=== PATIENT | male | born 1955 | race Caucasian/White ===

== ENCOUNTER 2020-11-28 11:06 | Inpatient (IN) | payer SELFPAY ==
[2020-11-28 14:12] LABS: Absolute Lymphocytes (CBC) 2.2 K/uL (0.7-4.9); Basophils % 1.5 % (0-1.3); Lymphocytes % 16.9 % (15.3-44.8); MPV 7.6 fL (7.6-11.3)
[2020-11-28 14:19] LABS: Hematocrit 18.3 % (39.6-49.0)
--- NOTE | 2020-11-28 14:33 | RAD REPORT ---
EXAM DESCRIPTION: CT - Head Brain Wo Cont - 11/28/2020 2:07 pm CLINICAL HISTORY: Head swelling and pain COMPARISON: None TECHNIQUE: Computed axial tomography of the head was obtained. IV contrast was not requested. All CT scans are performed using dose optimization technique as appropriate and may include automated exposure control or mA/KV adjustment according to patient size. FINDINGS: An intracranial bleed is not seen . The ventricles are normal in caliber. No extra-axial fluid collection is noted. Soft tissue with ulceration is present within the right subtemporal region extending into external au ditory canal. Soft tissue is present within the right mastoids with bony destruction suspected. Soft left subtemporal region. 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
--- NOTE | 2020-11-28 14:34 | RAD REPORT ---
EXAM DESCRIPTION: CT - Soft Tissue Neck Wo Contr - 11/28/2020 2:07 pm CLINICAL HISTORY: Neck pain/dysphasia/neck mass COMPARISON: October 2016 TECHNIQUE: Computed axial tomography of the neck was obtained. IV contrast was not requested. Coron al and sagittal reconstruction was performed. All CT scans are performed using dose optimization technique as appropriate and may include automated exposure control or mA/KV adjustment according to patient size. FINDINGS: The pharynx, tongue base, larynx and subglottic trachea appear unremarkable The parotid, submandibular and thyroid glands appear unremarkable. Soft tissue with ulceration is present within the right subtemporal region extending into external au ditory canal. Soft tissue is present within the right mastoids with bony destruction suspected. Soft left subtemporal region. The left external auditory canal and mastoids are clear IMPRESSION: Right malignant external otitis
[2020-11-28 14:40] LABS: ALT/SGPT 12 U/L (12-78); AST/SGOT 7 U/L (15-37); Alkaline Phosphatase 57 U/L (45-117); BUN Blood Urea Nitrogen 37 mg/dL (7-18); Bicarbonate 21 mmol/L (21-32); Bilirubin Direct < 0.1 mg/dL (0-0.2); Bilirubin Total 0.3 mg/dL (0.2-1.0); Glucose Level 104 mg/dL (74-106); Magnesium 2.4 mg/dL (1.8-2.4); Potassium 4.6 mmol/L (3.5-5.1); Protein, Total 7.7 g/dL (6.4-8.2); Sodium Level 138 mmol/L (136-145)
--- NOTE | 2020-11-28 14:40 | RAD REPORT ---
EXAM DESCRIPTION: RAD - Chest Single View - 11/28/2020 2:24 pm CLINICAL HISTORY: chronic wounds COMPARISON: None TECHNIQUE: AP portable chest image was obtained 11/28/2020 2:24 pm . FINDINGS: No acute lung parenchymal process seen. Heart and vasculature are normal. No measurable pl eural effusion and no pneumothorax. No acute bone process seen. Patient has a very severe scoliotic d eformity of the spine. An acute component is not seen. Bone detail is limited. No acute aortic findin gs suspected. IMPRESSION: No acute cardiopulmonary process.
[2020-11-28 15:07] LABS: Blood Morphology Comment NOTED (NOT SEEN); Hypochromasia 1+; Platelet Estimate INCR; White Blood Cell Scan OK (OK)
[2020-11-28] MEDS ORDERED: CEFEPIME/SWI 1gm 10 ML ONE (17:58)
[2020-11-28] MEDS ORDERED: VANCOMYCIN/NS 1 gm 1 GM/250 ML BAG IVPB ONE (18:00)
--- NOTE | 2020-11-28 18:50 | EDPHYS ---
Physician Documentation [facility] Name: Jason Murray Age: 64 yrs Sex: Male : 1955 Arrival Date: 11/28/2020 Time: 11:15 Bed 30 Private MD: ED Physician Jose D Whelan HPI: 11/28 13:10 This 64 yrs old Male presents to ER via Wheelchair with complaints of ear cp bugs, Leg Pain, Wound Infection. 13:10 The patient or guardian reports pain, concern for infected chronic wounds ears. Sister cp of patient reports noticing "maggots" in open wounds of ears. 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 13:10 Associated signs and symptoms: Pertinent negatives: neck pain, fever, shortness of cp breath. Historical: - Allergies: 11:49 PENICILLINS; jl7 - Home Meds: 11:49 None [Active]; jl7 - PMHx: 11:49 untreated skin cancer; scoliosis; jl7 - PSHx: 11:49 Tonsillectomy; jl7 - Immunization history:: Adult Immunizations not up to date, Client reports having NOT received the Covid vaccine. - Social history:: Smoking status: . ROS: 13:15 Constitutional: Negative for body aches, chills, fever, poor PO intake. cp 13:15 Eyes: Negative for injury, pain, redness, and discharge. cp 13:15 Cardiovascular: Negative for chest pain, palpitations. 13:15 Respiratory: Negative for cough, shortness of breath, wheezing. 13:15 Abdomen/GI: Negative for abdominal pain, nausea, vomiting, and diarrhea. 13:15 Skin: Positive for of the left ear and right ear, chronic open wounds. 13:15 Neuro: Positive for weakness, Negative for altered mental status, headache. 13:15 All other systems are negative. Exam: 13:20 Constitutional: The patient appears in no acute distress, alert, awake, cp non-diaphoretic, non-toxic, well developed, frail. 13:20 Head/face: Noted is large open wound noted to area of right ear with purulent drainage, cp observed infestation with maggots. Right submandibular area appears with golf ball size wound through dermal layer of skin. 13:20 Eyes: Periorbital structures: appear normal, Pupils: equal, round, and reactive to light and accomodation, Extraocular movements: intact throughout, Conjunctiva: normal, no exudate, no injection, Sclera: no appreciated abnormality, Lids and lashes: appear normal, bilaterally. 13:20 ENT: Nose: is normal, Mouth: Lips: moist, Oral mucosa: moist, Posterior pharynx: Airway: no evidence of obstruction, patent. 13:20 Neck: ROM/movement: is normal, is supple, without pain, no range of motions limitations. 13:20 Chest/axilla: Inspection: normal, Palpation: is normal, no crepitus, no tenderness. 13:20 Cardiovascular: Rate: normal, Rhythm: regular, Edema: is not appreciated, JVD: is not appreciated. 13:20 Respiratory: the patient does not display signs of respiratory distress, Respirations: normal, no use of accessory muscles, no retractions, labored breathing, is not present, Breath sounds: are clear throughout, no decreased breath sounds, no stridor, no wheezing. 13:20 Abdomen/GI: Inspection: abdomen appears normal, Bowel sounds: active, all quadrants, Palpation: abdomen is soft and non-tender, in all quadrants. 13:20 Back: scoliosis that is marked. 13:20 Neuro: Orientation: to person, place \\T\\ time. Mentation: is normal. 14:38 ECG was reviewed by the Attending Physician. Vital Signs: 11:46 BP 108 / 64; Pulse 79; Resp 17; Temp 98.9; Pulse Ox 100% ; Weight 68.04 kg; Height 5 jl7 ft. 6 in. (167.64 cm); Pain 3/10; 17:45 BP 128 / 74; Pulse 61; Resp 16; Pulse Ox 98% on R/A; iw 11:46 Body Mass Index 24.21 (68.04 kg, 167.64 cm) jl7 Latosha Coma Score: 13:10 Eye Response: spontaneous(4). Verbal Response: oriented(5). Motor Response: obeys cp commands(6). Total: 15. MDM: 13:03 Patient medically screened. cp 17:00 Physician consultation: Monica Albarado MD in the emergency department to see patient cp at 16:10, cleans and debrides wounds and will consult on patient. 18:45 Data reviewed: vital signs, nurses notes, lab test result(s), EKG, radiologic studies, cp CT scan, plain films. 18:45 Test interpretation: by ED physician or midlevel provider: ECG, plain radiologic cp studies. Counseling: I had a detailed discussion with the patient and/or guardian regarding: the historical points, exam findings, and any diagnostic results supporting the discharge/admit diagnosis, lab results, radiology results, the need for further work-up and treatment in the hospital. Physician consultation: Ronnie HURTADO was contacted at 18:45, regarding admission, to the telemetry unit. patient's condition. 11/28 13:22 Order name: Basic Metabolic Panel; Complete Time: 14:52 cp 11/28 14:53 Interpretation: Normal except: CL 109; BUN 37; CRE 2.75; GFR 23; CA 8.2. cp 11/28 13:22 Order name: CBC with Diff; Complete Time: 15:15 cp 11/28 14:24 Interpretation: Normal except: WBC 13.20; RBC 2.90; HGB 5.9; HCT 18.3; MCV 63.3; MCH cp 20.2; PLT 445; RDW 18.0; TACOS% 73.9; BASO% 1.5; NEUT A 9.7. 11/28 13:22 Order name: LFT's; Complete Time: 14:52 cp 11/28 14:53 Interpretation: Normal except: AST 7; ALB 3.0; GLOB 4.7; A/G 0.6. cp 11/28 13:22 Order name: Magnesium; Complete Time: 14:52 cp 11/28 13:22 Order name: PT-INR; Complete Time: 22:59 cp 11/28 13:22 Order name: Ptt, Activated; Complete Time: 22:59 cp 11/28 13:46 Order name: Blood Culture Adult (2) cp 11/28 13:46 Order name: Lactate; Complete Time: 16:50 cp 11/28 13:46 Order name: Procalcitonin; Complete Time: 16:50 cp 11/28 16:50 Interpretation: Abnormal: Procalcitonin 0.07. cp 11/28 14:20 Order name: CREATININE WHOLE BLOOD; Complete Time: 14:23 EDMS 11/28 14:21 Order name: Type And Screen cp 11/28 15:07 Order name: CBC Smear Scan; Complete Time: 15:15 EDPR 11/28 16:53 Order name: Packed RBC Leukored EDPR 11/28 13:22 Order name: EKG; Complete Time: 13:22 11/28 13:48 Order name: XRAY Chest (1 view); Complete Time: 14:52 11/28 14:03 Order name: Head Brain Wo Cont; Complete Time: 14:39 EDMS 11/28 14:05 Order name: Soft Tissue Neck Wo Contr; Complete Time: 14:39 EDPR 11/28 19:30 Order name: CONS Physician Consult; Complete Time: 22:59 EDMS 11/28 19:53 Order name: SARS-COV-2 RT PCR; Complete Time: 22:59 EDMS 11/28 20:16 Order name: ABO/RH no charge; Complete Time: 22:59 EDMS 11/28 22:36 Order name: Transferrin Sat/Iron Binding; Complete Time: 22:59 EDMS 11/28 22:36 Order name: Ferritin; Complete Time: 22:59 [facility] 11/28 22:36 Order name: Folic Acid, (Folate); Complete Time: 22:59 EDPR 11/28 22:36 Order name: Vitamin B12 Level; Complete Time: 22:59 EDPR 11/28 13:22 Order name: EKG - Nurse/Tech; Complete Time: 16:06 11/28 13:22 Order name: IV Saline Lock; Complete Time: 16:06 11/28 13:22 Order name: Labs collected and sent; Complete Time: 16:06 11/28 13:22 Order name: O2 Per Protocol; Complete Time: 16:06 11/28 13:22 Order name: O2 Sat Monitoring; Complete Time: 16:06 11/28 14:22 Order name: Labs - recollect needed; Complete Time: 18:18 mt 11/28 15:11 Order name: consult Order-Monica Albarado MD (ENT, OTOLARGNOGOLOGY) 11/28 15:35 Order name: Wound Care: please clean and dress wounds; Complete Time: 17:33 11/28 16:22 Order name: Labs - recollect needed; Complete Time: 18:17 mt 11/28 18:31 Order name: Labs - recollect needed; Complete Time: 19:24 mt EC:38 Rate is 63 beats/min. Rhythm is regular. NH interval is normal. QRS interval is normal. cp QT interval is normal. T waves are Inverted in lead aVR. Interpreted by me. Reviewed by me. Administered Medications: 17:45 Drug: Cefepime 1 grams Route: IVPB; Rate: 200 ml/hr; Infused Over: 30 mins; Site: left iw antecubital; 18:00 Follow up: IV Status: Completed infusion iw 19:24 Drug: vancoMYCIN 1 grams Route: IVPB; Infused Over: 2 hrs; Site: right antecubital; iw 19:45 Follow up: IV Status: Infusion continued iw Disposition: 18:50 Chart complete. cp 11/29 06:39 Co-signature as Attending Physician, Jose D Whelan MD I agree with the assessment and kdr plan of care. Disposition Summary: 11/28/20 18:50 Hospitalization Ordered Hospitalization Status: Inpatient Admission cp Provider: Joshua Peterson cp Location: Telemetry/MedSurg (Inpatient) cp Condition: Stable cp Problem: new cp Symptoms: have improved cp Bed/Room Type: Standard cp Room Assignment: 216(11/28/20 22:48) Diagnosis - Acute kidney failure, unspecified cp - Anemia in other chronic diseases classified elsewhere cp Forms: - Medication Reconciliation Form cp - SBAR form cp Signatures: Dispatcher [employer] EDMS Yasmine Collier RN RN Jose D Whelan MD MD [facility] Tahira Garza RN RN Stalin Phillips PA PA cp Denise Alexander RN RN jl7 Erin Vázquez or Corrections: (The following items were deleted from the chart) 11/28 14:03 13:22 Head Brain W/ Wo Con+CT.RAD.BRZ ordered. EDMS EDMS 14:05 13:22 Soft Tissue Neck W/Contr+CT.RAD.BRZ ordered. EDMS EDMS 18:49 15:27 CORONAVIRUS+MR.LAB.BRZ ordered. EDMS EDMS 22:48 18:50 cp mw
--- NOTE | 2020-11-28 18:50 | ER ---
Nurse's Notes [facility] Name: Jason Murray Age: 64 yrs Sex: Male : 1955 Arrival Date: 11/28/2020 Time: 11:15 Bed 30 Private MD: Diagnosis: Acute kidney failure, unspecified;Anemia in other chronic diseases classified elsewhere Presentation: 11/28 11:46 Chief complaint: Patient states: untreated skin cancer to bilateral ears, fly landed on jl7 right side and now there's bugs. Also reports bilateral leg pain, right leg worse. Coronavirus screen: Client denies travel out of the [place] in the last 14 days. At this time, the client does not indicate any symptoms associated with coronavirus-19. Ebola Screen: No symptoms or risks identified at this time. Initial Sepsis Screen: Does the patient meet any 2 criteria? No. Patient's initial sepsis screen is negative. Does the patient have a suspected source of infection? No. Patient's initial sepsis screen is negative. Risk Assessment: Do you want to hurt yourself or someone else? Patient reports no desire to harm self or others. Onset of symptoms is unknown. 11:46 Method Of Arrival: Wheelchair jl7 11:46 Acuity: BETTY 3 jl7 Triage Assessment: 11:49 General: Appears in no apparent distress. uncomfortable, Behavior is calm, cooperative, jl7 appropriate for age. Pain: Complains of pain in right leg and left leg. Historical: - Allergies: 11:49 PENICILLINS; jl7 - Home Meds: 11:49 None [Active]; jl7 - PMHx: 11:49 untreated skin cancer; scoliosis; jl7 - PSHx: 11:49 Tonsillectomy; jl7 - Immunization history:: Adult Immunizations not up to date, Client reports having NOT received the Covid vaccine. - Social history:: Smoking status: . Screenin:00 Fall Risk None identified. iw 18:08 Abuse screen: Denies threats or abuse. Denies injuries from another. Nutritional iw screening: No deficits noted. Tuberculosis screening: No symptoms or risk factors identified. Assessment: 13:00 General: Appears in no apparent distress. Behavior is calm, cooperative. Pain: iw Complains of pain in right ear and left ear. Neuro: Level of Consciousness is awake, alert, obeys commands, Oriented to person, place, time, situation, Moves all extremities. Cardiovascular: Patient's skin is warm and dry. Respiratory: Respiratory effort is even, unlabored. Derm: large ulceration and destruction of right ear canal, visible live maggots noted inside ear canal, outer ear cartilage is destroyed, weeping, crusting, dried blood noted to right ear area, large ulceration of left lower jaw area with weeping and crusting noted , left ear cartilage is intact, no insects noted. Musculoskeletal: Scoliosis noted. 15:05 Reassessment: Patient appears in no apparent distress at this time. Patient and/or iw family updated on plan of care and expected duration. Pain level reassessed. Patient is alert, oriented x 3, equal unlabored respirations, skin warm/dry/pink. 16:05 Reassessment: Patient appears in no apparent distress at this time. Patient and/or iw family updated on plan of care and expected duration. Pain level reassessed. Patient is alert, oriented x 3, equal unlabored respirations, skin warm/dry/pink. 16:15 Reassessment: Dr. Albarado at bedside to evaluate pt, wound care completed, removed 46 iw live maggots. 17:50 Reassessment: unsuccessful attempt X 2 left EJ by GENESIS Leger. iw Vital Signs: 11:46 BP 108 / 64; Pulse 79; Resp 17; Temp 98.9; Pulse Ox 100% ; Weight 68.04 kg; Height 5 jl7 ft. 6 in. (167.64 cm); Pain 3/10; 17:45 BP 128 / 74; Pulse 61; Resp 16; Pulse Ox 98% on R/A; iw 11:46 Body Mass Index 24.21 (68.04 kg, 167.64 cm) jl7 Latosha Coma Score: 13:10 Eye Response: spontaneous(4). Verbal Response: oriented(5). Motor Response: obeys cp commands(6). Total: 15. ED Course: 11:15 Patient arrived in ED. am2 11:49 Triage completed. jl7 11:49 Arm band placed on right wrist. jl7 13:02 Tahira Garza, RN is Primary Nurse. iw 13:02 Stalin Phillips PA is PHCP. cp 13:02 Jose D Whelan MD is Attending Physician. cp 14:00 Inserted saline lock: 22 gauge in left antecubital area, using aseptic technique. iw 14:07 Head Brain Wo Cont In Process Unspecified. EDMS 14:07 Soft Tissue Neck Wo Contr In Process Unspecified. EDMS 14:24 XRAY Chest (1 view) In Process Unspecified. EDMS 15:59 COVID swab sent to lab. Missed attempt(s): 20 gauge in right forearm. 22 gauge in right mh5 wrist. 16:09 Patient has correct armband on for positive identification. Placed in gown. Bed in low mh5 position. Call light in reach. Side rails up X 1. Adult w/ patient. Warm blanket given. campus monitor on. Pulse ox on. NIBP on. 16:[address] [facility] 16:09 PT-INR [facility] 16:30 Assist provider with foreign body removal of an insect from right ear canal. using alligator clamps, Set up for procedure. Performed by Monica Albarado MD Patient tolerated well. 17:50 Missed attempt(s): 18 gauge in left EJ. iw 18:09 Inserted saline lock: 20 gauge in right antecubital area, using aseptic technique. 18:49 Joshua Peterson is Hospitalizing Provider. cp 11/29 00:15 Patient admitted, IV remains in place. iw Administered Medications: 11/28 17:45 Drug: Cefepime 1 grams Route: IVPB; Rate: 200 ml/hr; Infused Over: 30 mins; Site: left iw antecubital; 18:00 Follow up: IV Status: Completed infusion iw 19:24 Drug: vancoMYCIN 1 grams Route: IVPB; Infused Over: 2 hrs; Site: right antecubital; iw 19:45 Follow up: IV Status: Infusion continued iw Outcome: 18:50 Decision to Hospitalize by Provider. cp 11/29 00:15 Admitted to Med/surg iw Condition: good Discharge instructions given to patient, Instructed on the need for admit. 00:18 Patient left the ED. mw2 Signatures: Dispatcher [employer] Tahira Nelson RN RN iw Stalin Phillips PA PA cp Martinez, Maria 5 Denise Alexander RN RN 7 Aria German am2 Adrianna Gilmore mw2 Corrections: (The following items were deleted from the chart) 11/28 18:49 16:07 CORONAVIRUS+MR.LAB.BRZ drawn and sent. mh5 EDMS
[2020-11-28 19:07] LABS: Protime INR 1.24
--- NOTE | 2020-11-28 20:52 | P.HP ---
Certification for Inpatient Patient admitted to: Inpatient With expected LOS: >2 Midnights Patient will require the following post-hospital care: None Practitioner: I am a practitioner with admitting privileges, knowledge of patient current condition, hospital course, and medical plan of care. Services: Services provided to patient in accordance with Admission requirements found in Title 42 Section 412.3 of the Code of Federal Regulations Patient History Date of Service: 11/28/20 Primary Care Provider: none Reason for admission: bilateral ear wounds, anemia, PAMELA History of Present Illness: Mr. Murray is a 64 yo M with untreated skin cancer, severe scoliosis here today with severe open wounds of both ears extending to the face and with erosion of the right ear. Maggots were found in both ears. Patient said he has been too weak to walk his dog so she has been using the bathroom in the house which attracted the flies and maggots. ENT debrided wound and removed maggots. Reports drainage of wound and occasional diarrhea. Patient denies pain, night sweats, chills, nausea and vomiting. WBC 13.2. H/H 5.9, MCV 63.3. BUN 37, Cr 2.75, GFR 23. Procalcitonin 0.07. CXR revealed severe scoliotic deformity of the spine. CT read as right malignant external otitis and soft tissue left subtemporal region indicating inflammation. Allergies Penicillins Allergy (Verified 11/28/20 19:30) Anaphylaxis Home Medications: NK [No Home Meds] 11/28/20 - Past Medical/Surgical History Diabetic: No -: skin cancer -: scoliosis -: shingles -: seizures in the -: tonsillectomy -: cholecystectomy -: eye surgery -: spinal fusion Psychosocial/ Personal History: lives alone with dog - Family History Mother -: Cancer Father -: Cancer - Social History Smoking Status: Never smoker Alcohol use: No CD- Drugs: No Caffeine use: No Place of Residence: Home Review of Systems 10-point ROS is otherwise unremarkable General: Weakness ENT: Ear Discharge Respiratory: Shortness of Breath, Wheezing Gastrointestinal: Diarrhea Integumentary: Rash, Lesions Neurological: Weakness Physical Examination - Physical Exam General: Alert, In no apparent distress, Oriented x3, Cooperative HEENT: Atraumatic, Mucous membr. moist/pink, Other (surgery on right eye ), Sclerae nonicteric Neck: Supple, 2+ carotid pulse no bruit, No LAD, Without JVD or thyroid abnormality Respiratory: Clear to auscultation bilaterally, Diminished, Expiratory wheezes Cardiovascular: Regular rate/rhythm, Normal S1 S2 Gastrointestinal: Normal bowel sounds, No tenderness Musculoskeletal: No tenderness, Scoliosis (severe) Integumentary: Skin breakdown, Skin lesion, Tenderness/swelling, Erythema, Warmth, Other (complete erosion of right ear, extensive open wound of left ear with drainage ) Neurological: Normal speech, Normal strength at 5/5 x4 extr, Normal tone, Sensation intact, Cranial nerves 3-12 intact, Normal affect Lymphatics: No axilla or inguinal lymphadenopathy - Studies Laboratory Data (last 24 hrs) 11/28/20 18:47: PT 14.3 H, INR 1.24, APTT 25.0 11/28/20 13:50: WBC 13.20 H, Hgb 5.9 L*, Hct 18.3 L*, Plt Count 445 H 11/28/20 13:50: Sodium 138, Potassium 4.6, BUN 37 H, Creatinine 2.75 H, Glucose 104, Magnesium 2.4, Total Bilirubin 0.3, AST 7 L, ALT 12, Alkaline Phosphatase 57 Assessment and Plan - Plan Assessment bilateral open wounds of the ear, erosion of the ear 2/2 untreated skin cancer anemia requiring blood transfusions PAMELA scoliosis, severe Plan bilateral open wounds of the ear, erosion of the ear 2/2 untreated skin cancer - ENT consulted, continue IV antibiotics, blood cultures pending, will need to followup with oncology anemia requiring blood transfusions - transfuse 2 units pRBCs, repeat H/H 2 hours post, continue to monitor, iron panel pending, FOBT negative in the ED PAMELA - continue IVF hydration, nephrology consulted scoliosis, severe - may be contributing to SOB, breathing treatments and O2 PRN patient no longer can care for self at home, social work consulted, PT consulted DVT ppx Discharge Plan: Home Plan to discharge in: 72 Hours - Advance Directives Does patient have a Living Will: No Does patient have a Durable POA for Healthcare: No - Code Status/Comfort Care Code Status Assessed: Yes (full code) Critical Care: No Time Spent Managing Pts Care (In Minutes): 70
[2020-11-28] MEDS ORDERED: ONDANSETRON 4 MG/2 ML VIAL IV PRN (21:25)
[2020-11-28] MEDS ORDERED: ACETAMINOPHEN 500 MG TAB PO PRN (21:25)
[2020-11-28] MEDS: NA CHLORIDE 0.9% 1,000 ML IV SCH (21:25)
[2020-11-28] MEDS ORDERED: NA CHLORIDE 0.9% 100 ML ONE (22:12)
[2020-11-28] MEDS ORDERED: NA CHLORIDE 0.9% 1,000 ML ONE (22:13)
[2020-11-28] MEDS ORDERED: NA CHLORIDE 0.9% 250 ML ONE (22:13)
[2020-11-28] MEDS ORDERED: ALBUTEROL 2.5 MG/3 ML NEB SOL ONE (22:23)
[2020-11-28 22:36] LABS: Ferritin 7.1 ng/mL (26-388); Folic Acid, (Folate) 13.6 ng/mL (3.1-17.5)
[2020-11-28] MEDS: ALBUTEROL 2.5 MG/3 ML NEB SOL NEB SCH (22:46)
[2020-11-29 00:17] VITALS: BMI 20.6
[2020-11-29 00:56] LABS: Urine Appearance CLEAR (Clear); Urine Bilirubin NEGATIVE (Negative); Urine Blood TRACE (Negative); Urine Color YELLOW (Yellow); Urine Glucose NEGATIVE (Negative); Urine Protein TRACE (Negative); Urine Urobilinogen 0.2 mg/dL (0.2-1.0); Urine pH 5.5 (5.0-7.0)
[2020-11-29 00:58] LABS: Urine Microscopic Reflex ORDER UMIC
[2020-11-29 01:15] LABS: Urine Bacteria <20 /HPF (NONE SEEN); Urine RBC <5 /HPF (NONE SEEN); Urine Urothelial Cells <5 /HPF (NONE SEEN)
[2020-11-29] MEDS ORDERED: NA CHLORIDE 0.9% 500 ML ONE (02:39)
[2020-11-29] MEDS: ALBUTEROL 2.5 MG/3 ML NEB SOL NEB SCH ×2 (03:20→19:30)
[2020-11-29 05:55] LABS: Absolute Lymphocytes (CBC) 1.1 K/uL (0.7-4.9); Hematocrit 24.7 % (39.6-49.0); Lymphocytes % 11.2 % (15.3-44.8); MPV 7.6 fL (7.6-11.3); RBC Red Blood Cell Count 3.46 M/uL (4.33-5.43)
[2020-11-29] MEDS ORDERED: CEFEPIME 2 GM VIAL IV SCH (06:00)
[2020-11-29 06:09] LABS: Albumin 2.6 g/dL (3.4-5.0); Bilirubin Total 0.8 mg/dL (0.2-1.0); Magnesium 2.3 mg/dL (1.8-2.4); Phosphorus 3.9 mg/dL (2.5-4.9); Potassium 4.2 mmol/L (3.5-5.1); Protein, Total 6.7 g/dL (6.4-8.2); Thyroid Stimulating Hormone 1.08 uIU/mL (0.360-3.740)
[2020-11-29] MEDS: NA CHLORIDE 0.9% 1,000 ML IV SCH ×3 (07:25→20:55)
--- NOTE | 2020-11-29 07:30 | EKG ---
Test Date: 2020-11-28 Test Time: 14:34:27 [employer]: FOREIGN MEASUREMENT RESULTS: Intervals: Rate: 63 SC: 194 QRSD: 76 QT: 414 QTc: 423 [place]: P: 59 SC: 194 QRS: 37 T: 58 INTERPRETIVE STATEMENTS: Normal sinus rhythm Normal ECG No previous ECG available for comparison Electronically Signed On 11-29-20 07:29:10 CDT by Percy Watkins
[2020-11-29] MEDS ORDERED: PNEUMOCOCCAL VACCINE 0.5 ML IMVAC ONE (08:00)
[2020-11-29 08:31] LABS: Hematocrit 24.5 % (39.6-49.0)
--- NOTE | 2020-11-29 10:03 | P.CNS ---
Date of Consult: 11/29/20 Reason for Consult: PAMELA/ CKD Requesting Physician: gila sahni Primary Care Provider: none Chief Complaint: bilateral ear wounds, anemia, PAMELA History of Present Illness: Mr. Murray is a 64 yo M with untreated skin cancer, severe scoliosis here today with severe open wounds of both ears extending to the face and with erosion of the right ear. Maggots were found in both ears. Patient said he has been too weak to walk his dog so she has been using the bathroom in the house which attracted the flies and maggots. ENT debrided wound and removed maggots. Reports drainage of wound and occasional diarrhea. Patient denies pain, night sweats, chills, nausea and vomiting. WBC 13.2. H/H 5.9, MCV 63.3. BUN 37, Cr 2.75, GFR 23. Procalcitonin 0.07. CXR revealed severe scoliotic deformity of the spine. CT read as right malignant external otitis and soft tissue left subtemporal region indicating inflammation. Reports taking a lot of NSAIDs in the past but quit six months ago due to a lack of effect. Reports symptoms of BPH. Allergies Penicillins Allergy (Verified 11/28/20 19:30) Anaphylaxis Home medications list reviewed: Yes Home Medications: NK [No Home Meds] 11/28/20 - Past Medical/Surgical History Diabetic: No -: skin cancer -: scoliosis -: shingles -: seizures in the -: tonsillectomy -: cholecystectomy -: eye surgery -: spinal fusion Psychosocial/ Personal History: lives alone with dog - Family History Mother Medical History: Cancer Father Medical History: Cancer - Social History Alcohol use: No CD- Drugs: No Caffeine use: Yes Place of Residence: Home Review of Systems 10-point ROS is otherwise unremarkable General: Weakness, Malaise ENT: Ear Pain, Ear Discharge Genitourinary: Frequency, Urgency Integumentary: Lesions Neurological: Weakness Physical Examination Temp Pulse Resp BP Pulse Ox 98.4 F 68 18 121/77 98 11/29/20 08:00 11/29/20 08:00 11/29/20 08:00 11/29/20 08:00 11/29/20 08:00 General: Oriented x3, Cooperative HEENT: EOMI Neck: Supple Respiratory: Normal air movement Cardiovascular: No edema, Regular rate/rhythm Gastrointestinal: Soft and benign, Non-distended Musculoskeletal: No clubbing, No contractures Integumentary: No rashes, No cyanosis, Skin breakdown, Skin lesion Neurological: Normal speech Laboratory Data (last 24 hrs) 11/28/20 18:47: PT 14.3 H, INR 1.24, APTT 25.0 11/28/20 13:50: WBC 13.20 H, Hgb 5.9 L*, Hct 18.3 L*, Plt Count 445 H 11/28/20 13:50: Sodium 138, Potassium 4.6, BUN 37 H, Creatinine 2.75 H, Glucose 104, Magnesium 2.4, Total Bilirubin 0.3, AST 7 L, ALT 12, Alkaline Phosphatase 57 Imagings Data: EXAM DESCRIPTION: RAD - Chest Single View - 11/28/2020 2:24 pm CLINICAL HISTORY: chronic wounds COMPARISON: None TECHNIQUE: AP portable chest image was obtained 11/28/2020 2:24 pm . FINDINGS: No acute lung parenchymal process seen. Heart and vasculature are normal. No measurable pleural effusion and no pneumothorax. No acute bone process seen. Patient has a very severe scoliotic deformity of the spine. An acute component is not seen. Bone detail is limited. No acute aortic findings suspected. IMPRESSION: No acute cardiopulmonary process. EXAM DESCRIPTION: CT - Soft Tissue Neck Wo Contr - 11/28/2020 2:07 pm CLINICAL HISTORY: Neck pain/dysphasia/neck mass COMPARISON: October 2016 TECHNIQUE: Computed axial tomography of the neck was obtained. IV contrast was not requested. Coronal and sagittal reconstruction was performed. All CT scans are performed using dose optimization technique as appropriate and may include automated exposure control or mA/KV adjustment according to patient size. FINDINGS: The pharynx, tongue base, larynx and subglottic trachea appear unremarkable The parotid, submandibular and thyroid glands appear unremarkable. Soft tissue with ulceration is present within the right subtemporal region extending into external auditory canal. Soft tissue is present within the right mastoids with bony destruction suspected. Soft left subtemporal region. The left external auditory canal and mastoids are clear IMPRESSION: Right malignant external otitis EXAM DESCRIPTION: CT - Head Brain Wo Cont - 11/28/2020 2:07 p CLINICAL HISTORY: Head swelling and pain COMPARISON: None TECHNIQUE: Computed axial tomography of the head was obtained. IV contrast was not requested. All CT scans are performed using dose optimization technique as appropriate and may include automated exposure control or mA/KV adjustment according to patient size. FINDINGS: An intracranial bleed is not seen . The ventricles are normal in caliber. No extra-axial fluid collection is noted. Soft tissue with ulceration is present within the right subtemporal region extending into external auditory canal. Soft tissue is present within the right mastoids with bony destruction suspected. Soft left subtemporal region. The left external auditory canal and mastoids are clear IMPRESSION: These findings probably indicate right malignant external otitis Soft tissue left subtemporal region indicating inflammation Conclusions/Impression: PAMELA likely due to hypovolemia CKD IV -No NSAIDs -Continue IVF Hypocalcemia -Start Vitamin D3 Moderate malnutriton -Encourage nutrition Anemia in chronic illness Iron deficiency -sp PRBCs -Agree with IV iron BPH with LUTS -Start Flomax qhs Thank you kindly for the consultation Case reviewed with Dr. Sahni
[2020-11-29] MEDS: CEFEPIME/SWI 2gm 2 GM/20 ML SYR IV SCH (10:32)
[2020-11-29] MEDS: SOD FERRIC GLUC COMPLX/SUCROSE 125 MG in NA CHLORIDE 0.9% 100 ML IV SCH (10:36)
--- NOTE | 2020-11-29 10:39 | PN ---
Date of Progress Note: 11/29/2020 Interim History: The patient was admitted through the emergency room last night due to acute kidney failure and severe anemia requiring transfusion. I evaluated the patient in the ER in regard to his bilateral neck and facial tumors. The patient did receive transfusion without any discernible reaction and is continuing medical evaluation for his medical conditions. The patient is tolerating oral diet and does not have any significant complaints in regard to his head wounds. He denies any sensation of crawling or movement within the wounds. Physical Examination: The patient is alert and oriented. He is in no acute distress. His dressing placed yesterday in the emergency room fell off. The right wound is relatively stable. There is a small amount of purulent debris coming from the ear canal, which is likely due to superficial infection of the tumor. There is no active bleeding. There is no visible movement or residual maggots noted within the ear canal or crevices of the tumor at this time. The left wound is likewise stable. There is no active bleeding, though the tumor is friable to touch. There is some blood on the patient's gown and pillow likely from excoriation of the tumor during sleep. Assessment: Stable bilateral advanced skin malignancy, otherwise unchanged. Plan: The patient will require extensive oncologic resection, reconstruction, and possible postoperative radiation. All of this can be arranged on an outpatient basis. Due to the advanced nature of his disease, expertise of an manager language, head and neck cancer subspecialist, plastics/reconstructive specialist as well as others will be required for the treatment of his disease. These are best treated in an academic setting such as [facility], the [facility], or [facility]. I am uncertain at this time regarding the availability of an advanced head and neck specialist at [facility], though this may be the an additional option. I previously discussed with the patient and his sister regarding the importance of obtaining medical insurance in order to have better access to require care. I spoke with the nursing staff regarding wound cleaning and dressing. I recommend gentle cleaning of the tumor areas with a moist gauze in order to lightly debride from the purulent drainage. The wounds can then be covered with a large piece of Xeroform and a head wrap or head dressing in order to secure the Xeroform to the wounds. This dressing should be changed on a daily or twice daily basis. At this point in time, I disagree with the radiologist's diagnosis of malignant otitis externa in regard to an infectious cause. Based on his clinical findings, the bone erosion of the right external auditory canal is likely due to his malignancy and does not warrant long-term IV antibiotics. Please feel free to contact me regarding any further questions or concerns about his case. SEVERIANO/ZAKIYA Voice ID: [id number] Report ID: [id number] JUANY
--- NOTE | 2020-11-29 11:33 | CON ---
Date of Consultation: 11/28/2020 Reason For Consultation: Large wounds of the bilateral head with possible maggot infestation. History Of Present Illness: Mr. Murray presented to the emergency room with complaints of leg pain and bugs in his ear. He was noted to have large exophytic tumors encompassing the right ear and left side of the face. He underwent CT imaging with results to be discussed below. Based on the findings, ENT consultation was requested. The patient states that he has had these skin lesions for many years and had neglected them due to a general distrust of medical personnel. The patient states that in the s, he was seen by a physician with some health concerns and was accused of seeking medical care unnecessarily. Then, subsequently he had 2 major seizures. As a result, he has avoided interactions with the medical community for a significant period of time. The patient's accessed care is also limited by his financial status and lack of medical insurance. In regard to his current wounds, the patient has had some pain and bleeding from the tumors of the right ear and left side of the face. Due to progressive leg pain and difficulty in ambulating, he was unable to take his pet dog out for a walk and the dog had begun defecating in the house resulting in infestation of flies. As a consequence, the patient noted a sensation of crawling within the wounds of his face and was concerned about maggot infestation of the wounds prompting his desire to seek medical care. Past Medical History: Severe scoliosis, history of seizure. Past Surgical History: Tonsillectomy, cholecystectomy, eye surgery, spinal fusion. Review of Systems: Reviewed from the ER documentation and is unchanged. Allergies: PENICILLIN. Home Medications: None. Social History: The patient lives alone with his dog, but has a supportive family. His sister lives in [place] and she as well as other family members have been adamantly encouraging the patient to seek care, which he was unable to do until now. Physical Examination: The patient is awake, alert. His right eye is somewhat ptotic. His right cornea appears abnormal. His most notable head and neck finding involves 2 large exophytic and ulcerated wounds. The right side is matted and caked with dark brown debris of uncertain quality or contents. The debris is removed using scissors to cut its entanglement with the patient's hair. This reveals a large exophytic tumor encompassing all of the right external ear. There are multiple crevices, which appear to be infested with maggots. The remaining ear canal is filled with maggots. The cartilage of the right outer ear appears completely gone. I do not see any exposed bone of the external ear at this time. The wound is carefully debrided of all visible maggots. A total of 45 are removed from the ear canal and crevices of the wound. The ear canal is irrigated with saline and re-examined, but there are no further visible maggots. The left wound is a large exophytic cancerous-appearing tumor, which extends from below the jaw line encompassing the entire lateral cheek including the tragus, antitragus, and earlobe. The wound is very crusted, but there are no visible maggots. The crusting is carefully removed in order to evaluate the tumor better. The ear canal on this side appears minimally involved. In regard to the patient's psychiatric exam, his thought process is fluent. He denies any hallucinations or history of mental illness. He acknowledges the severity of his condition and is willing and now motivated to get appropriate care for his condition. Imaging: The patient's chest x-ray demonstrates severe scoliosis with possible cardiomegaly, but no acute pulmonary processes. On review of the patient's imaging, he has soft tissue enhancement around the right ear and left face consistent with his physical exam. There is bone erosion of the right posterior canal wall with mastoid effusion, which is likely malignant rather than infectious in nature based on his history and clinical findings. In addition, near the tail of the right parotid, there is a 14 mm lymph node within necrotic center, which is concerning for metastatic disease. In addition, he has a significant right septal deviation with right septal spur and the left sukumar bullosa with no other noted mucosal sinus inflammation. Assessment: Bilateral advanced cutaneous malignancy by history and physical exam. Based on clinical and radiographic findings, the patient will require treatment by a coordinated team including the Head and Neck Surgical Oncology subspecialist, likely an senior technical analyst for a lateral temporal bone resection, a plastics-reconstructive specialist due to the anticipated size of the soft tissue defects (ALT free flap likely). He will also likely require bilateral parotidectomy and bilateral neck dissection based on the size of the tumors and need for martin analysis with removal of clinically suspicious right lymph node. I spent an extensive period of time with the patient and the sister explaining his current findings and the need for major surgery including likely postoperative radiation. We discussed that this level of care would require treatment at a tertiary care center such as [facility], the [facility] [place], or [facility] in [place]. Due to his current self- pay status, he also will require some assistance and attention to obtain medical insurance in order to have adequate access to a higher level of care. The patient's sister expresses understanding and is supportive in assisting him in regard to insurance issues. She is also willing to host the patient in her home on a temporary basis while he engages in his necessary medical care in the [place] area. She is also encouraging him to consider assisted living or other assisted care situation due to his health status, which has limited his ability to provide adequate safe living environment for him. All of this advanced cancer care would generally be arranged and performed initially on an outpatient basis. Due to the patient's other underlying medical issues including kidney dysfunction and severe anemia, he will be admitted to the hospitalist service. I am available and happy to answer any questions and assist in re-evaluation and dressing of the wounds, but I am happy to answer any further questions arise. HILLARY Voice ID: [id number] Report ID: [id number] JUANY
--- NOTE | 2020-11-29 15:31 | P.PN ---
Subjective Date of Service: 11/29/20 Primary Care Provider: none Chief Complaint: bilateral ear wounds, anemia, PAMELA Patient with large exophytic lesion on the left cheek, large lesion on the right year with complete destruction of the ear lobe. Hemoglobin low. Status post blood transfusion. Renal function is improving. Patient has no new complain. No fever. Physical Examination - Vital Signs Temperature: 99.5 F Blood Pressure: 119/59 Pulse: 67 Respirations: 18 Pulse Ox (%): 100 - Physical Exam General: Alert, In no apparent distress HEENT: Other (Complete destruction of the right ear lobe by malignant skin lesion) Neck: JVD not distended Respiratory: Clear to auscultation bilaterally, Normal air movement Cardiovascular: No edema, Regular rate/rhythm, Normal S1 S2 Gastrointestinal: Soft and benign, Non-distended, No tenderness Musculoskeletal: No swelling Neurological: Normal strength at 5/5 x4 extr - Studies Laboratory Data (last 24 hrs) 11/28/20 18:47: PT 14.3 H, INR 1.24, APTT 25.0 Assessment And Plan - Current Problems (Diagnosis) (1) Chronic blood loss anemia Current Visit: Yes Status: Acute (2) Acute renal failure Current Visit: Yes Status: Acute (3) Poor social situation Current Visit: Yes Status: Acute (4) Skin cancer Current Visit: Yes Status: Acute - Plan Status post 2 units PRBC transfusion. Posttransfusion hemoglobin is up to 7. Continue IV hydration for acute renal failure. Nephrology input appreciated. Sister is willing to have the patient live with her. Pain management as needed. Follow cultures.
[2020-11-29] MEDS: TAMSULOSIN 0.4 MG SR CAP PO SCH (21:30)
[2020-11-30] MEDS: ALBUTEROL 2.5 MG/3 ML NEB SOL NEB SCH ×4 (02:00→20:00)
[2020-11-30] MEDS: NA CHLORIDE 0.9% 1,000 ML IV SCH ×2 (03:25→06:18)
[2020-11-30 06:12] LABS: Absolute Lymphocytes (CBC) 1.6 K/uL (0.7-4.9); Hematocrit 21.6 % (39.6-49.0); Lymphocytes % 18.1 % (15.3-44.8); MPV 7.2 fL (7.6-11.3); RBC Red Blood Cell Count 3.07 M/uL (4.33-5.43)
[2020-11-30 06:13] LABS: Potassium 4.2 mmol/L (3.5-5.1)
[2020-11-30] MEDS ORDERED: PNEUMOCOCCAL VACCINE 0.5 ML IMVAC ONE (09:00)
[2020-11-30] MEDS: CEFEPIME/SWI 2gm 2 GM/20 ML SYR IV SCH (10:31)
[2020-11-30] MEDS: SOD FERRIC GLUC COMPLX/SUCROSE 125 MG in NA CHLORIDE 0.9% 100 ML IV SCH (10:31)
[2020-11-30] MEDS: VITAMIN D 5,000 UNIT CAP PO SCH (10:32)
[2020-11-30] MEDS: NACHLORIDE 0.45% 1,000 ML IV SCH ×2 (10:32→18:00)
--- NOTE | 2020-11-30 13:49 | P.PN ---
Subjective Date of Service: 11/30/20 Primary Care Provider: none Chief Complaint: bilateral ear wounds, anemia, PAMELA Hemoglobin dropped again. Patient denies any bloody stool or dark stool. Status post 2 units blood transfusion. Serum creatinine slightly up today. Patient has no new complain. No fever. Physical Examination - Vital Signs Temperature: 99.6 F Blood Pressure: 113/56 Pulse: 72 Respirations: 15 Pulse Ox (%): 99 - Physical Exam General: Alert, In no apparent distress HEENT: Other (Bilateral ear) Respiratory: Clear to auscultation bilaterally, Normal air movement Cardiovascular: Regular rate/rhythm, Normal S1 S2 Gastrointestinal: Soft and benign, Non-distended Musculoskeletal: No swelling Neurological: Normal strength at 5/5 x4 extr Assessment And Plan - Current Problems (Diagnosis) (1) Chronic blood loss anemia Current Visit: Yes Status: Acute (2) Acute renal failure Current Visit: Yes Status: Acute (3) Poor social situation Current Visit: Yes Status: Acute (4) Skin cancer Current Visit: Yes Status: Acute - Plan Status post 2 units PRBC transfusion. Posttransfusion hemoglobin down to 6.8 Transfuse 1 more unit PRBC Continue IV hydration for acute renal failure. Nephrology is following Pain management as needed. Local wound care. Blood cultures negative. Urine culture shows mixed growth. Continue empiric antibiotics.
[2020-11-30] MEDS ORDERED: Levofloxacin 750mg IV 750 MG/150 ML BAG IV ONE (14:35)
[2020-11-30] MEDS ORDERED: NA CHLORIDE 0.9% 250 ML ONE (16:45)
--- NOTE | 2020-11-30 18:19 | P.PN ---
Date of Service: 11/30/20 Vital Signs Temp Pulse Resp BP Pulse Ox 98.7 F 71 16 142/68 H 100 11/30/20 16:00 11/30/20 16:00 11/30/20 16:00 11/30/20 16:00 11/30/20 16:00 Medications Acetaminophen (Acetaminophen 500 Mg Tab) 500 mg PO Q4HP PRN PRN Reason: Pain scale 2-4 (Mild) Albuterol Sulfate (Albuterol 2.5 Mg/3 Ml Neb Annemarie) 2.5 mg NEB [id number] [facility] Last Admin: 11/30/20 14:02 Dose: 2.5 mg Documented by: Cholecalciferol (Vitamin D 5,000 Unit Cap) 5,000 unit PO DAILY [facility] Last Admin: 11/30/20 10:32 Dose: 5,000 unit Documented by: Doxycycline Monohydrate (Doxycycline 100 Mg Cap) 100 mg PO BID [facility]; Protocol Ferric Sodium Gluconate Complex 125 mg/ Sodium Chloride 110 mls @ 100 mls/hr IV DAILY [facility] Stop: 12/06/20 10:05 Last Admin: 11/30/20 10:31 Dose: 110 mls Documented by: Sodium Chloride (Sodium Chloride 0.45%) 1,000 mls @ 100 mls/hr IV .Q10H [facility] Last Admin: 11/30/20 10:32 Dose: 1,000 mls Documented by: Levofloxacin/Dextrose (Levaquin 500 Mg/100 Ml Ivpb) 500 mg in 100 mls @ 100 mls/hr IV Q48H [facility] Ondansetron HCl (Ondansetron 4 Mg/2 Ml Vial) 4 mg IV Q6HP PRN PRN Reason: NAUSEA / VOMITING Sodium Chloride (Flush Normal Saline 10 Ml) 10 ml IV BID [facility] Last Admin: 11/30/20 09:00 Dose: Not Given Documented by: Tamsulosin HCl (Tamsulosin 0.4 Mg Sr Cap) 0.4 mg PO BEDTIME [facility] Last Admin: 11/29/20 21:30 Dose: 0.4 mg Documented by: Lab Results (last 24 hrs) 11/28/20 18:47: ABO/Rh A POSITIVE, Solid Phase Ab Screen Negative, Crossmatch See Detail Microbiology Results 11/28/20 18:05 Blood - Blood Aerobic Blood Culture - Preliminary No growth in 24 hours. 11/28/20 18:05 Blood - Blood Anaerobic Blood Culture - Preliminary No growth in 24 hours. 11/28/20 17:50 Blood - Blood Aerobic Blood Culture - Preliminary No growth in 24 hours. 11/28/20 17:50 Blood - Blood Anaerobic Blood Culture - Preliminary No growth in 24 hours. Assessment/ Plan: Nephrology Feeling better with improved urine output. CPS stable without CP or SOB. No acute events overnight. Vitals, medications, blood work and imaging reviewed in the chart. General: Oriented x3, Cooperative HEENT: EOMI. Large left ear lesion. Neck: Supple Respiratory: Normal air movement Cardiovascular: No edema, Regular rate/rhythm Gastrointestinal: Soft and benign, Non-distended Musculoskeletal: No clubbing, No contractures Integumentary: No rashes, No cyanosis, Skin breakdown, Skin lesion Neurological: Normal speech Laboratory Data (last 24 hrs) 11/28/20 18:47: PT 14.3 H, INR 1.24, APTT 25.0 11/28/20 13:50: WBC 13.20 H, Hgb 5.9 L*, Hct 18.3 L*, Plt Count 445 H 11/28/20 13:50: Sodium 138, Potassium 4.6, BUN 37 H, Creatinine 2.75 H, Glucose 104, Magnesium 2.4, Total Bilirubin 0.3, AST 7 L, ALT 12, Alkaline Phosphatase 57 Imagings Data: EXAM DESCRIPTION: RAD - Chest Single View - 11/28/2020 2:24 pm CLINICAL HISTORY: chronic wounds COMPARISON: None TECHNIQUE: AP portable chest image was obtained 11/28/2020 2:24 pm . FINDINGS: No acute lung parenchymal process seen. Heart and vasculature are normal. No measurable pleural effusion and no pneumothorax. No acute bone process seen. Patient has a very severe scoliotic deformity of the spine. An acute component is not seen. Bone detail is limited. No acute aortic findings suspected. IMPRESSION: No acute cardiopulmonary process. EXAM DESCRIPTION: CT - Soft Tissue Neck Wo Contr - 11/28/2020 2:07 pm CLINICAL HISTORY: Neck pain/dysphasia/neck mass COMPARISON: October 2016 TECHNIQUE: Computed axial tomography of the neck was obtained. IV contrast was not requested. Coronal and sagittal reconstruction was performed. All CT scans are performed using dose optimization technique as appropriate and may include automated exposure control or mA/KV adjustment according to patient size. FINDINGS: The pharynx, tongue base, larynx and subglottic trachea appear unremarkable The parotid, submandibular and thyroid glands appear unremarkable. Soft tissue with ulceration is present within the right subtemporal region extending into external auditory canal. Soft tissue is present within the right mastoids with bony destruction suspected. Soft left subtemporal region. The left external auditory canal and mastoids are clear IMPRESSION: Right malignant external otitis EXAM DESCRIPTION: CT - Head Brain Wo Cont - 11/28/2020 2:07 p CLINICAL HISTORY: Head swelling and pain COMPARISON: None TECHNIQUE: Computed axial tomography of the head was obtained. IV contrast was not requested. All CT scans are performed using dose optimization technique as appropriate and may include automated exposure control or mA/KV adjustment according to patient size. FINDINGS: An intracranial bleed is not seen . The ventricles are normal in caliber. No extra-axial fluid collection is noted. Soft tissue with ulceration is present within the right subtemporal region extending into external auditory canal. Soft tissue is present within the right mastoids with bony destruction suspected. Soft left subtemporal region. The left external auditory canal and mastoids are clear IMPRESSION: These findings probably indicate right malignant external otitis Soft tissue left subtemporal region indicating inflammation Conclusions/Impression: PAMELA likely due to hypovolemia CKD IV -No NSAIDs -Change IVF 1/2NS Hypocalcemia -Continue Vitamin D3 Moderate malnutriton -Encourage nutrition Anemia in chronic illness Iron deficiency -sp PRBCs -Agree with IV iron BPH with LUTS -Continue Flomax qhs Case reviewed with Dr. Peterson
[2020-11-30] MEDS: DOXYCYCLINE 100 MG CAP PO SCH (22:25)
[2020-11-30] MEDS: TAMSULOSIN 0.4 MG SR CAP PO SCH (22:25)
[2020-11-30 23:05] LABS: Hematocrit 24.6 % (39.6-49.0)
[2020-12-01] MEDS: NACHLORIDE 0.45% 1,000 ML IV SCH ×4 (01:40→21:17)
[2020-12-01] MEDS: ALBUTEROL 2.5 MG/3 ML NEB SOL NEB SCH ×4 (02:00→20:00)
[2020-12-01 07:45] LABS: Absolute Lymphocytes (CBC) 1.6 K/uL (0.7-4.9); Hematocrit 25.4 % (39.6-49.0); Lymphocytes % 18.8 % (15.3-44.8); MPV 7.1 fL (7.6-11.3); RBC Red Blood Cell Count 3.49 M/uL (4.33-5.43)
[2020-12-01 08:06] LABS: Albumin 2.2 g/dL (3.4-5.0); Bilirubin Total 0.5 mg/dL (0.2-1.0); Potassium 4.1 mmol/L (3.5-5.1); Protein, Total 5.9 g/dL (6.4-8.2)
[2020-12-01] MEDS: DOXYCYCLINE 100 MG CAP PO SCH ×2 (09:59→21:17)
[2020-12-01] MEDS: VITAMIN D 5,000 UNIT CAP PO SCH (09:59)
[2020-12-01] MEDS: SOD FERRIC GLUC COMPLX/SUCROSE 125 MG in NA CHLORIDE 0.9% 100 ML IV SCH (09:59)
--- NOTE | 2020-12-01 14:12 | P.PN ---
Subjective Date of Service: 12/01/20 Primary Care Provider: none Chief Complaint: bilateral ear wounds, anemia, PAMELA Hemoglobin stable after blood transfusion. Status post 2 units blood transfusion. Serum creatinine improving slowly Patient has no new complain and desires to go home No fever. Physical Examination - Vital Signs Temperature: 99.6 F Blood Pressure: 139/71 Pulse: 70 Respirations: 18 Pulse Ox (%): 97 - Physical Exam General: In no apparent distress, Oriented x3 Neck: JVD not distended Respiratory: Clear to auscultation bilaterally, Normal air movement Cardiovascular: Regular rate/rhythm, Normal S1 S2 Gastrointestinal: Soft and benign, Non-distended Neurological: Normal strength at 5/5 x4 extr Assessment And Plan - Current Problems (Diagnosis) (1) Chronic blood loss anemia Current Visit: Yes Status: Acute (2) Acute renal failure Current Visit: Yes Status: Acute (3) Poor social situation Current Visit: Yes Status: Acute (4) Skin cancer Current Visit: Yes Status: Acute - Plan Status post 3 units PRBC transfusion. Posttransfusion hemoglobin down to 6.8 Transfuse 1 more unit PRBC Continue IV hydration for acute renal failure. Nephrology is following Pain management as needed. Local wound care. Blood cultures negative. Urine culture shows mixed growth. Continue empiric antibiotics.
--- NOTE | 2020-12-01 16:14 | PN ---
Date of Progress Note: 12/01/2020 Subjective: The patient is alert, awake, able to answer questions appropriately. He seems to be unk ept with poor dentition. Has had some issues with his infection in the ear. He says that has been t reated. Says that he presented to the hospital feeling unwell, was having some difficulty with eatin g and drinking and then was quite dehydrated. He says he lives alone and states that in the future h e does intend to be careful with keeping his volume intake and food intake adequate. He denies havin g any history of kidney problems and denies having followed up with a kidney doctor in the past, but says that he will keep follow up in the future if that is needed. He states he lives close to [facility]. He denies any sort of discomfort. He does not have any shortness of breath. Skin is lookin g quite dry. Mouth is looking dry. Objective: Vital signs: His blood pressure is stable with last blood pressure in the 139/71, before that 130/74, pulse is about 70 and regular, respirations around 14 and comfortable. His temperature is around 99.6. Lungs: Clear to auscultation bilaterally. His O2 sats are 100% on room air. Abdomen: Soft. Extremities: Reveal no edema. Heart: Sounds are regular. Laboratory Data: Reviewed. Sodium 140, potassium 4.1, chloride 114, bicarb 20, BUN and creatinine a re 28 and 2.14, yesterday was 31 and 2.29, before that 36 and 2.53. WBC count 8.7, hemoglobin 8.1, h ematocrit 25.4, platelet count of 310. Assessment And Plan: The patient with urinary tract infections, on antibiotics with Levaquin and dox ycycline. History of benign prostatic hyperplasia, on Flomax. Says his urine output has been adequa te and doing well with it. Acute kidney injury with volume depletion and prerenal azotemia. The pat ient is overall doing well with that with improvement, with volume repletion. Continue IV fluids at current rate and recheck BM P tomorrow. /ZAKIYA Voice ID: [id number] Report ID: [id number]
[2020-12-01] MEDS: TAMSULOSIN 0.4 MG SR CAP PO SCH (21:17)
[2020-12-02] MEDS: ALBUTEROL 2.5 MG/3 ML NEB SOL NEB SCH ×3 (02:00→14:00)
[2020-12-02 05:49] LABS: Absolute Lymphocytes (CBC) 1.6 K/uL (0.7-4.9); Hematocrit 26.9 % (39.6-49.0); Lymphocytes % 16.4 % (15.3-44.8); MPV 6.8 fL (7.6-11.3); RBC Red Blood Cell Count 3.67 M/uL (4.33-5.43)
[2020-12-02 06:01] LABS: Albumin 2.3 g/dL (3.4-5.0); Phosphorus 3.9 mg/dL (2.5-4.9); Potassium 4.4 mmol/L (3.5-5.1)
[2020-12-02] MEDS: VITAMIN D 5,000 UNIT CAP PO SCH (08:38)
[2020-12-02] MEDS: DOXYCYCLINE 100 MG CAP PO SCH (08:38)
[2020-12-02] MEDS: SOD FERRIC GLUC COMPLX/SUCROSE 125 MG in NA CHLORIDE 0.9% 100 ML IV SCH (08:39)
[2020-12-02] MEDS: NACHLORIDE 0.45% 1,000 ML IV SCH (08:43)
[2020-12-02 09:25] VITALS: TEMP 97.8
[2020-12-02 09:33] VITALS: O2SAT 98
--- NOTE | 2020-12-02 11:42 | P.DS ---
Admission Date: 11/28/20 Discharge Date: 12/02/20 Primary Care Provider: none Disposition: DC HOME/HOME HEALTH CARE Discharge Condition: FAIR Reason for Admission: bilateral ear wounds, anemia, PAMELA - Problems (1) Chronic blood loss anemia Current Visit: Yes Status: Acute (2) Acute renal failure Current Visit: Yes Status: Acute (3) Poor social situation Current Visit: Yes Status: Acute (4) Skin cancer Current Visit: Yes Status: Acute Brief History of Present Illness: 64 yo M with untreated skin cancer, presented to the ED with wounds of both ears extending to the face and with distructive erosion of the right ear. Maggots were found in both ears. Patient said he has been too weak to walk his dog so she has been using the bathroom in the house which attracted the flies and maggots. ENT debrided both wounds and removed maggots. Patient noted to have severe anemia with HB 5.9. WBC 13.2. MCV 63.3. BUN 37, Cr 2.75, GFR 23. Procalcitonin 0.07. CXR revealed severe scoliotic deformity of the spine. CT read as right malignant external otitis and soft tissue left subtemporal region indicating inflammation. Patient hospitalized for further management. Hospital Course: Patient admitted to the medical floor and transfused 3 units PRBC. He was hydrated with IV fluid for acute renal failure. Serum creatinine level trended trended down. Patient was seen in consultation by nephrology who assisted with management of his acute renal failure. Hemoglobin has stabilized after blood transfusion. Acute renal failure has responded to IV hydration. Patient deemed stable for discharge. He needs to follow with maxillofacial surgery to evaluate for possible surgery. He will follow with nephrology within 1-2 weeks. Vital Signs/Physical Exam: Temp Pulse Resp BP Pulse Ox 97.8 F 65 18 142/82 H 96 12/02/20 08:00 12/02/20 08:00 12/02/20 08:00 12/02/20 08:00 12/02/20 08:00 General: Alert, In no apparent distress Neck: JVD not distended Respiratory: Clear to auscultation bilaterally, Normal air movement Cardiovascular: Regular rate/rhythm, Normal S1 S2 Gastrointestinal: Normal bowel sounds, Soft and benign, Non-distended Musculoskeletal: No swelling Neurological: Normal strength at 5/5 x4 extr Laboratory Data at Discharge: WBC 9.60 K/uL (4.3-10.9) 12/02/20 05:35 Hgb 8.6 g/dL (13.6-17.9) L 12/02/20 05:35 Hct 26.9 % (39.6-49.0) L 12/02/20 05:35 Plt Count 293 K/uL (152-406) 12/02/20 05:35 PT 14.3 SECONDS (9.5-12.5) H 11/28/20 18:47 INR 1.24 11/28/20 18:47 APTT 25.0 SECONDS (24.3-36.9) 11/28/20 18:47 Sodium 140 mmol/L (136-145) 12/02/20 05:35 Potassium 4.4 mmol/L (3.5-5.1) 12/02/20 05:35 BUN 27 mg/dL (7-18) H 12/02/20 05:35 Creatinine 2.05 mg/dL (0.55-1.3) H 12/02/20 05:35 Glucose 100 mg/dL (74-106) 12/02/20 05:35 Phosphorus 3.9 mg/dL (2.5-4.9) 12/02/20 05:35 Magnesium 2.3 mg/dL (1.8-2.4) 11/29/20 05:23 Total Bilirubin 0.5 mg/dL (0.2-1.0) 12/01/20 07:11 AST 10 U/L (15-37) L 12/01/20 07:11 ALT 12 U/L (12-78) 12/01/20 07:11 Alkaline Phosphatase 44 U/L (45-117) L 12/01/20 07:11 Triglycerides 43 mg/dL (<150) 11/29/20 05:23 Cholesterol 86 mg/dL (<200) 11/29/20 05:23 HDL Cholesterol 38 mg/dL (40-60) L 11/29/20 05:23 Cholesterol/HDL Ratio 2.26 11/29/20 05:23 Home Medications: Cholecalciferol (Vitamin D3) [Vitamin D 5,000 IU Cap*] 5,000 unit PO DAILY #30 cap 12/02/20 Doxycycline Hyclate [Vibramycin] 100 mg PO BID #14 capsule 12/02/20 Tamsulosin [Flomax*] 0.4 mg PO BEDTIME #30 cap 12/02/20 New Medications: Tamsulosin [Flomax*] 0.4 mg PO BEDTIME #30 cap Doxycycline Hyclate [Vibramycin] 100 mg PO BID #14 capsule Cholecalciferol (Vitamin D3) [Vitamin D 5,000 IU Cap*] 5,000 unit PO DAILY #30 cap Physician Discharge Instructions: You will need to follow up with maxillofacial surgeon at [facility] or [facility] for further evaluation of the skin cancer and possible surgery. Clean ears and face with saline then wrap Wong ears with zeroform and kerlix daily Diet: Renal Activity: Ad shu Followup: NONE,NONE [Primary Care Provider] - Ren Sherman DO [ACTIVE - CAN ADMIT] - 1-2 Weeks Time spent managing pt's care (in minutes): 35
[2020-12-02 12:15] LABS: Anisocytosis 3+; Blood Morphology Comment NOTED (NOT SEEN); Hypochromasia 1+; Platelet Estimate ADEQ; White Blood Cell Scan OK (OK)
[2020-12-02 12:16] LABS: Poikilocytosis 2+
[2020-12-02 13:57] VITALS: BP 136/67
[2020-12-02] MEDS ORDERED: Levofloxacin500mg IV 500 MG/100 ML BAG IV SCH (15:00)
--- NOTE | 2020-12-02 15:51 | PN ---
Subjective: The patient is seen in room 216 at [facility]. The patient is alert , awake and comfortable, breathing comfortably, sitting at the edge of the bed. He is calling the james arellano, getting ready for his discharge, and wanting to just make sure that the pharmacy has antibiot ics so he can go and pick it up today. He states that he will keep up with his fluid intake. He is not having any nausea or vomiting. He states that he will follow up in clinic with us. I given him information on our clinic and the number to make appointment. He says that it may be beneficial or e asier for him to come to [place] or [facility] in which case he will make an appointment wi Dr. Sherman if he wants to come to [place] and wants to see me that is also an option for [facility]. We have given him information on how to do that. Objective: Vital Signs: Stable. Blood pressure is 136/67, pulse 65, respirations of 14 on my exam. He is afebrile. His O2 sats are 99% on room air. Lungs: Clear to auscultation. Abdomen: Soft. Extremities: Do not reveal any edema. Heart: Regular. Laboratory Data: His lab work is showing WBC of 9.6, hemoglobin 8.6, hematocrit 26.9, platelet count of 293. Sodium 140, potassium 4.4, chloride 113, bicarb 21, BUN 27, creatinine 2.05. AST and ALT 1 0 and 12. Albumin 2.3. His HDL was 38, LDL was 39, cholesterol was 86, triglycerides 43. Assessment And Plan: The patient with chronic kidney disease, acute kidney injury, presents with marleen vated creatinine, presents with volume depletion, prerenal azotemia. He has been now volume repleted . He also had urinary tract infection for which he got treated with antibiotics and currently being discharged with antibiotics. He has been advised to complete the course. He has been advised to vandana p p.o. intake good. Will need further followup in clinic to assess for his residual renal function a nd management of that going forward. The patient understands of information to make appointment. Kenney s been explained to him the importance of following up with primary care and with Nephrology if he does not diagnoses and management may be missed. /ZAKIYA Voice ID: [id number] Report ID: [id number]
== END 2020-12-02 15:13 | disposition home or self-care (01) | DRG 683 ==
LOC: ER 11:06 → ERHOLD 20:11 → 2ND 23:33
PROVIDERS: ADMIT Internal Medicine; ATTEND Internal Medicine
PROC: 30233N1 Transfusion of Nonautologous Red Blood Cells into Peripheral Vein, Percutaneous Approach (ICD-10-PCS; principal; 2020-11-28)
DX: N17.9 Acute kidney failure, unspecified (principal); E44.0 Moderate protein-calorie malnutrition; D62 Acute posthemorrhagic anemia; N39.0 Urinary tract infection, site not specified; N18.4 Chronic kidney disease, stage 4 (severe); E86.9 Volume depletion, unspecified; D63.8 Anemia in other chronic diseases classified elsewhere; E83.51 Hypocalcemia; M41.9 Scoliosis, unspecified; D50.9 Iron deficiency anemia, unspecified; N40.1 Benign prostatic hyperplasia with lower urinary tract symptoms; S01.301A Unspecified open wound of right ear, initial encounter; S01.302A Unspecified open wound of left ear, initial encounter; C44.90 Unspecified malignant neoplasm of skin, unspecified; R35.0 Frequency of micturition; R39.15 Urgency of urination; Z60.2 Problems related to living alone; Z79.899 Other long term (current) drug therapy; Z68.20 Body mass index [BMI] 20.0-20.9, adult; Z88.0 Allergy status to penicillin; Z20.822 Contact with and (suspected) exposure to COVID-19
CPT/HCPCS: 36415; 36430; 70450; 70490; 71045; 80048; 80053; 80061; 80069; 80076; 81003; 81015; 82274; 82565; 82607; 82728; 82746; 83540; 83605; 83735; 84100; 84145; 84439; 84443; 84466; 85014; 85018; 85025; 85044; 85610; 85730; 86850; 86900; 86901; 87040; 87070; 87077; 87086; 87088; 87186; 87205; 93005; 94640; 94760; 96365; 96375; 97110; 97161; 97530; 99285; J0692; J2916; J3370; J7030; J7040; J7050; P9016; U0003